=== PATIENT | male | born 1985 | race Caucasian/White ===

== ENCOUNTER 2019-10-25 09:26 | Emergency (ER) | payer OTHER ==
[~2019-10-25] VITALS: Ht 170.2 cm; Wt 79.0 kg
[2019-10-25 10:15] LABS: BASOPHILS # (AUTO) 0.03 x10^3/uL (0-0.1); BASOPHILS % (AUTO) 0 % (0-1); EOSINOPHILS # (AUTO) 0.74 x10^3/uL (0-0.4); EOSINOPHILS % (AUTO) 6 % (1-7); LYMPHOCYTES # (AUTO) 1.03 x10^3/uL (1-3.4); LYMPHOCYTES % (AUTO) 8 % (22-44); MD NO; MEAN CORPUSCULAR HEMOGLOBIN 29.8 pg (27.5-34.5); MEAN CORPUSCULAR HGB CONC 33.1 g/dL (33.2-36.2); MEAN PLATELET VOLUME 7.6 fL (7.4-10.4); MONOCYTES # (AUTO) 0.74 x10^3/uL (0.2-0.8); MONOCYTES % (AUTO) 6 % (2-9); NEUTROPHILS # (AUTO) 10.46 x10^3/uL (1.8-6.8); NEUTROPHILS % (AUTO) 81 % (42-75); PLATELET COUNT 339 x10^3/uL (130-400); RED BLOOD COUNT 5.88 x10^6/uL (4.38-5.82); RED CELL DISTRIBUTION WIDTH 12.8 % (9.4-14.8)
[2019-10-25 10:24] LABS: ALBUMIN 4.1 g/dL (3.4-5.0); ANION GAP 6 mmol/L (5-15); CHLORIDE 109 mmol/L (98-107)
[2019-10-25 10:28] LABS: ALANINE AMINOTRANSFERASE 43 U/L (12-78); ALKALINE PHOSPHATASE 74 U/L (45-117); BILIRUBIN,TOTAL 0.7 mg/dL (0.2-1.0); TOTAL PROTEIN 7.9 g/dL (6.4-8.2)
--- NOTE | 2019-10-25 10:50 | NUR ---
TO ROOM FROM LOBBY. NAD.
--- NOTE | 2019-10-25 11:27 | NUR ---
PT. IS A & O X 4 WITH A GCS OF 15. PT. HAS C/O OF A GENERALIZED RASH THAT STARTED IN Jun AND IS GETTING PROGRESSIVELY WORSE. PT.'S SKIN IS RED WITH SPORADIC BLISTERS. PT.'S SKIN IS WEEPING AT HIS NECK. PT.'S FACE HAS DRY SKIN AND ON HIS FACE AND PERIORBITAL EDEMA PRESENT. PT. WAS GIVEN MULTIPLE BLANKETS FOR WARMTH. PT.'S LUNGS ARE CTA. MM ARE MOIST WITH PULSES + 2 THROUGHOUT. CAP REFILL IS BRISK. PT. STATES THE RASH IS PAINFUL AND ITCHY. PT.'S ABD. IS SOFT AND NON-TENDER WITH BS + X 4 QUADS. SIDERAILS REMAIN UP X 2 WITH THE CALL LIGHT IN PLACE. [address] FLAHERTY IS AT THE BEDSIDE.
--- NOTE | 2019-10-25 11:54 | NUR ---
RECEIVED REPORT FROM HERNESTO ALAMO. ASSUMING CARE AT THIS TIME.
--- NOTE | 2019-10-25 12:01 | NUR ---
AT BEDSIDE TO UPDATE PT ON POC. PT RESTING COMFORTABLY ON GURGLORIA.
[2019-10-25] MEDS ORDERED: hydrOXyzine 50MG TABLET ONE (12:13)
--- NOTE | 2019-10-25 12:15 | NUR ---
MEDS ADMIN PER NOV.
--- NOTE | 2019-10-25 12:36 | NUR ---
PT. WAS GIVEN DISCHARGE INSTRUCTIONS AND SCRIPTS WITH UNDERSTANDING VERBALIZED ALONG WITH WILLINGNESS TO COMPLY. PT. WAS AMBULATORY TO THE DISCHARGE DESK.
[2019-10-25 12:38] VITALS: BP 145/66
== END 2019-10-25 12:41 | disposition home or self-care (01) ==
LOC: ED 12:30
DX: L20.9 Atopic dermatitis, unspecified (principal)
CPT/HCPCS: 36415; 80053; 85025; 99283; Q0177